=== PATIENT | male | born 1985 ===

== ENCOUNTER 2019-07-16 09:51 | Inpatient (IN) ==
[2019-07-16] MEDS ORDERED: ONDANSETRON 4 MG/2 ML VIAL IV PRN (11:23)
[2019-07-16] MEDS ORDERED: GLUCAGON 1 MG VIAL IM PRN (11:39)
[2019-07-16] MEDS ORDERED: DEXTROSE 10% 25 GM/250 ML BAG IV PRN (11:39)
[2019-07-16 11:56] LABS: Hematocrit 43.6 VOL% (42.0-52.0); Hemoglobin 15.4 GM/DL (14.0-18.0)
[2019-07-16 14:13] LABS: Basophils % 0.6 % (0.0-0.8); Eosinophils # 0.1 10*3/uL (0.0-0.87); Eosinophils % 1.4 % (0.00-10.9); Hematocrit 45.2 VOL% (42.0-52.0); Hemoglobin 15.6 GM/DL (14.0-18.0); Immature Granulocytes % 0.3 %; Immature Granulocytes Absolute 0.01 #; Lymphocytes # 1.3 10*3/uL (1.4-4.0); Lymphocytes % 35.2 % (21.2-54.2); Mean Corpuscular HGB Conc 34.5 GM/DL (32-36); Mean Corpuscular Volume 92.4 FL (87-102); Mean Platelet Volume 10.5 FL (9.6-12.0); Monocytes % 7.2 % (1.7-12.7); Neutrophils % 55.3 % (38.7-73.9); Platelet Count 82 T/CUMM (130-400); Red Blood Count 4.89 MC/CUMM (3.8-5.5); Red Cell Distribution Width 12.4 % (9.3-17.3); White Blood Count 3.6 T/CUMM (4-12)
[2019-07-16 14:23] LABS: INR 1.1; PT Patient Result 11.7 SECS (9.6-12.2)
[2019-07-16 14:40] LABS: Albumin 3.5 G/DL (3.4-5.0); Bilirubin,Total 0.7 MG/DL (0.2-1.0); Calcium 8.7 MG/DL (8.5-10.1); Osmolality,Calculated 291.8 MOS/KG (273-304); Total Protein 8.4 G/DL (6.4-8.3)
[2019-07-16] MEDS: INSULIN LISPRO 100 UNIT/ML SUBCUT SCH ×3 (15:16→23:45)
[2019-07-16 17:19] LABS: Platelet Estimate Decreased; Polychromasia Slight
[2019-07-16] MEDS: INSULIN GLARGINE 100 UNIT/ML SUBCUT SCH (18:26)
[2019-07-16 19:50] LABS: Hematocrit 42.2 VOL% (42.0-52.0); Hemoglobin 14.9 GM/DL (14.0-18.0)
[2019-07-16] MEDS: PANTOPRAZOLE 40 MG VIAL IV SCH (20:46)
[2019-07-17 05:42] LABS: Basophils % 0.2 % (0.0-0.8); Eosinophils # 0.1 10*3/uL (0.0-0.87); Eosinophils % 1.1 % (0.00-10.9); Hemoglobin 15.1 GM/DL (14.0-18.0); Immature Granulocytes % 0.2 %; Immature Granulocytes Absolute 0.01 #; Lymphocytes # 1.3 10*3/uL (1.4-4.0); Lymphocytes % 27.5 % (21.2-54.2); Mean Corpuscular HGB Conc 35.1 GM/DL (32-36); Mean Corpuscular Volume 92.3 FL (87-102); Mean Platelet Volume 10.3 FL (9.6-12.0); Monocytes % 9.2 % (1.7-12.7); Neutrophils % 61.8 % (38.7-73.9); Red Blood Count 4.66 MC/CUMM (3.8-5.5); Red Cell Distribution Width 12.2 % (9.3-17.3); White Blood Count 4.7 T/CUMM (4-12)
[2019-07-17 05:45] LABS: Hematocrit 43.2 VOL% (42.0-52.0)
[2019-07-17 05:47] LABS: INR 1.1; PT Patient Result 12.3 SECS (9.6-12.2)
[2019-07-17] MEDS: INSULIN LISPRO 100 UNIT/ML SUBCUT SCH ×3 (05:50→18:05)
[2019-07-17 05:56] LABS: Platelet Count 72 T/CUMM (130-400)
[2019-07-17 06:14] LABS: Bilirubin,Total 1.7 MG/DL (0.2-1.0); Calcium 8.3 MG/DL (8.5-10.1); Osmolality,Calculated 279.5 MOS/KG (273-304); Thyroid Stimulating Hormone 2.12 uIU/ml (0.358-3.74); Total Protein 7.4 G/DL (6.4-8.3)
[2019-07-17 06:20] LABS: Hypochromasia Slight; Microcytosis Slight; Platelet Estimate Decreased
[2019-07-17] MEDS: LISINOPRIL 10 MG TABLET PO SCH (08:44)
[2019-07-17] MEDS: PANTOPRAZOLE 40 MG VIAL IV SCH ×2 (08:46→21:07)
[2019-07-17] MEDS: LACTATED RINGERS 1,000 ML IV SCH (08:46)
[2019-07-17] MEDS ORDERED: LIDOCAINE 2% 5 ML VIAL ONE (09:00)
[2019-07-17] MEDS ORDERED: PANTOPRAZOLE 40 MG TABLET PO SCH (09:00)
[2019-07-17] MEDS ORDERED: PROPOFOL 200 MG/20 ML VIAL IV ONE (09:00)
[2019-07-17] MEDS: THIAMINE INJ 100 MG, FOLIC ACID INJ 1 MG, MULTIVITAMIN INJ 10 ML in SODIUM CHLORIDE 0.9... IV SCH (14:06)
[2019-07-17] MEDS: POTASSIUM CHLORIDE 20 MEQ TABLET PO PRN ×4 (14:06→21:07)
[2019-07-17] MEDS: INSULIN GLARGINE 100 UNIT/ML SUBCUT SCH (18:07)
[2019-07-18] MEDS: INSULIN LISPRO 100 UNIT/ML SUBCUT SCH ×2 (00:14→06:24)
[2019-07-18 05:23] LABS: Basophils % 0.4 % (0.0-0.8); Eosinophils % 0.8 % (0.00-10.9); Hematocrit 43.4 VOL% (42.0-52.0); Hemoglobin 15.2 GM/DL (14.0-18.0); INR 1.1; Lymphocytes # 1.5 10*3/uL (1.4-4.0); Lymphocytes % 31.6 % (21.2-54.2); Mean Corpuscular Volume 92.7 FL (87-102); Mean Platelet Volume 11.1 FL (9.6-12.0); Neutrophils % 57.2 % (38.7-73.9); PT Patient Result 12.1 SECS (9.6-12.2); Platelet Count 72 T/CUMM (130-400); Red Blood Count 4.68 MC/CUMM (3.8-5.5); Red Cell Distribution Width 12.3 % (9.3-17.3); White Blood Count 4.7 T/CUMM (4-12)
[2019-07-18 05:42] LABS: Hypochromasia 1+; Platelet Estimate Decreased
[2019-07-18 05:43] LABS: Microcytosis Slight
[2019-07-18 05:52] LABS: Bilirubin,Total 1.3 MG/DL (0.2-1.0); Osmolality,Calculated 286.1 MOS/KG (273-304); Total Protein 7.6 G/DL (6.4-8.3)
[2019-07-18] MEDS: LACTATED RINGERS 1,000 ML IV SCH (07:56)
[2019-07-18 08:38] VITALS: BP 108/65
[2019-07-18] MEDS: LISINOPRIL 10 MG TABLET PO SCH (09:29)
[2019-07-18] MEDS: THIAMINE INJ 100 MG, FOLIC ACID INJ 1 MG, MULTIVITAMIN INJ 10 ML in SODIUM CHLORIDE 0.9... IV SCH (09:30)
[2019-07-18] MEDS: POTASSIUM CHLORIDE 20 MEQ TABLET PO PRN (09:31)
[2019-07-18] MEDS: PANTOPRAZOLE 40 MG VIAL IV SCH (09:31)
== END 2019-07-18 10:57 | disposition home or self-care (01) | DRG 379 ==
LOC: EDUNIT# → EDBD → N.ED 09:51 → N.EDINP 11:25 → N.5E 13:51
PROVIDERS: ADMIT Internal Medicine; ATTEND Internal Medicine